=== PATIENT | female | born 1960 | race Caucasian/White ===

== ENCOUNTER 2017-08-12 05:22 | Day surgery (SDC) | payer BC ==
[~2017-08-12] VITALS: Ht 154.9 cm; Wt 97.5 kg
[~2017-08-12 05:22] MED LIST: ADVAIR 100/501 DISK IH; ALEVE220 MG PO; BUMETANIDE1 MG PO; BUMEX1 MG PO; CLARITIN,ALAVAR10 MG PO; CYANOCOBAL1000 MCG/2 IM; DYAZIDE, MA1 CAPSULE PO; ERGOCALCIF50000 UNIT PO; HYDROCODON-ACE1 EAC7 PO; KLOR-CON M2020 MEQ PO; LAMISIL250 MG PO; LOTRISONE15 GM TP; MEGACE40 MG PO; METHOCARBAMOL750 MG PO; MOTRIN800 MG PO; ONE DAILY FOR1 EAC3 PO; PRILOSEC40 MG PO; PROAIR HFA8.5 GM IH; PROMETHAZINE HC25 M1 PO; REGLAN5 MG PO; ULTRAM50 MG PO; XANAX0.25 MG PO
[2017-08-12 06:05] VITALS: BP 116/60
[2017-08-12] MEDS ORDERED: NORCO 5/3251 TABLET PO (08:37)
[2017-08-12 10:00] VITALS: BP 131/62
[2017-08-12 10:50] VITALS: BP 117/60
== END 2017-08-12 11:27 | disposition home or self-care (01) ==
LOC: SDC 05:22
DX: N95.0 Postmenopausal bleeding (principal); R93.8 Abnormal findings on diagnostic imaging of other specified body structures; N84.0 Polyp of corpus uteri; N80.0 Endometriosis of uterus; J45.909 Unspecified asthma, uncomplicated; I10 Essential (primary) hypertension; K21.9 Gastro-esophageal reflux disease without esophagitis; Z87.891 Personal history of nicotine dependence
CPT/HCPCS: 88305; J0131; J1100; J1170; J1885; J2250; J2405; J2765; J3010; J7643